=== PATIENT | male | born 1990 | race American Indian/Alaskan Native ===

== ENCOUNTER 2021-03-11 19:47 | Emergency (ER) | payer OTHER, MEDICAID ==
[2021-03-11] MEDS ORDERED: Proparacaine 0.5% Ophth Soln 15 ML Bottle EYEBOTH STA (19:53)
--- NOTE | 2021-03-11 20:34 | EDM.PDOC ---
ED HPI GENERAL MEDICAL PROBLEM - General Chief Complaint: Eye Problems Stated Complaint: SOMETHING IN RIGHT EYE Time Seen by Provider: 03/11/21 20:17 Source of Information: Reports: Patient, Family, RN Notes Reviewed History Limitations: Reports: No Limitations - History of Present Illness INITIAL COMMENTS - FREE TEXT/NARRATIVE: 30-year-old gentleman presents emergency department today with sensation of foreign body in his right eye, he was at work there is a lot of dust [employer]'s at work he noticed this when he took his hat and jacket off something flew up and hit his right eye now he has a sensation of a foreign body. States his tetanus is up-to-date right eye Pain Score (Numeric/FACES): 3 - Related Data Allergies Allergy/AdvReac Type Severity Reaction Status Date / Time No Known Allergies Allergy Verified 03/11/21 20:10 Home Meds: Home Meds NK [No Known Home Meds] 03/11/21 [History] Past Medical History Musculoskeletal History: Reports: Fracture, Other (See Below) Other Musculoskeletal History: left middle finger Neurological History: Reports: Concussion - Infectious Disease History Infectious Disease History: Reports: Chicken Pox - Past Surgical History Musculoskeletal Surgical History: Reports: Other (See Below) Other Musculoskeletal Surgeries/Procedures:: left middle finger Social & Family History - Tobacco Use Tobacco Use Status *Q: Current Every Day Tobacco User Years of Tobacco use: 12 Packs/Tins Daily: 1 - Caffeine Use Caffeine Use: Reports: Coffee, Soda - Recreational Drug Use Recreational Drug Use: No ED ROS GENERAL - Review of Systems Review Of Systems: See Below HEENT: Reports: Eye Discharge, Eye Pain ED EXAM GENERAL W FULL EYE - Physical Exam Exam: See Below Exam Limited By: No Limitations General Appearance: Alert, WD/WN, No Apparent Distress Eye Exam: Bilateral Eye: EOMI, Normal Inspection, PERRL Visual Acuity (R) 20/: 25 Visual Acuity (L) 20/: 25 Eyelids: Bilateral: Normal Appearance Conjunctiva & Sclera: Right: Normal Appearance, Left: Conjunctival Edema Cornea Exam: Bilateral: Normal Appearance Extraocular Movements: Bilateral: Intact Pupils: Normal Accommodation Pupillary Size: Bilateral: 4 mm Pupillary Reaction: Bilateral: Brisk Anterior Chamber: Bilateral: Normal Appearance Course - Vital Signs Last Recorded V/S: Last Vital Signs Temp 98.3 F 03/11/21 20:15 Pulse 80 03/11/21 20:15 Resp 16 03/11/21 20:15 BP 132/81 03/11/21 20:15 Pulse Ox 98 03/11/21 20:15 - Orders/Labs/Meds Meds: Medications Discontinued Medications Generic Name Dose Route Start Last Admin Trade Name Dhiraj PRN Reason Stop Dose Admin Proparacaine HCl 1 ml 03/11/21 19:53 03/11/21 20:16 Proparacaine 0.5% Ophth Soln 15 Ml Bottle EYEBOTH 03/11/21 19:54 1 ml NOW STA Administration Departure - Departure Time of Disposition: 20:33 Disposition: Home, Self-Care 01 Condition: Fair Clinical Impression: Foreign body of right eye Qualifiers: Encounter type: initial encounter Qualified Code(s): T15.91XA - Foreign body on external eye, part unspecified, right eye, initial encounter - Discharge Information Instructions: Eye Foreign Body, [id number] Referrals: PCP,None [Primary Care Provider] - Additional Instructions: Continue to use the antibiotics your right eye until reevaluated by eye care provider Sepsis Event Note (ED) - Evaluation Sepsis Screening Result: No Definite Risk - Focused Exam Vital Signs: Vital Signs Temp Pulse Resp BP Pulse Ox 03/11/21 20:15 98.3 F 80 16 132/81 98 03/11/21 20:09 98.3 F 80 16 132/81 98 - Assessment/Plan Plan: Assessment Acuity = acute Site and laterality = foreign body right Etiology = unknown Manifestations = none Location of injury = Home Lab values = none Plan After examination no foreign body was appreciated did fluorescein stain no ulcers or abrasions were noted either, elected to place on erythromycin ophthalmic and and follow-up with eye care provider next 1 to 2 days for reevaluation copious amounts of flushing was also provided This note was dictated using [employer] voice recognition software please call with any questions on syntax or grammar.
== END 2021-03-11 20:58 | disposition home or self-care (01) ==
LOC: JP.ED 19:47
DX: T15.91XA Foreign body on external eye, part unspecified, right eye, initial encounter (principal); Z72.0 Tobacco use
CPT/HCPCS: 99282; 99283; A9270-GY